=== PATIENT | female | born 1980 | race Caucasian/White ===

== ENCOUNTER 2018-04-09 13:53 | Emergency (ER) | payer BC ==
[~2018-04-09] VITALS: Ht 162.6 cm; Wt 62.6 kg
[2018-04-09 14:44] LABS: Source, Urine Clean Catch
[2018-04-09 14:48] LABS: Appearance, Urine Clear (Clear); Bilirubin, Urine Neg (Neg); Blood, Urine Neg (Neg); Color, Urine Yellow (P-Yellow); Glucose Qualitative, Urine Neg (Neg); Ketones, Urine Neg (Neg); Leukocyte Esterase, Urine Neg (Neg); Nitrite, Urine Neg (Neg); Protein, Urine Neg (Neg); Urobilinogen, Urine NORM (Normal)
[2018-04-09 15:15] LABS: Alanine Aminotransfer (ALT/SGP 28 U/L (12-78); Albumin, Blood 4.2 g/dL (3.4-5.0); Albumin/Globulin Ratio 1.2 (0.8-1.8); Alk Phos 62 U/L (50-136); Anion Gap 9 mmol/L (6-16); Aspartate Aminotrans (AST/SGOT 17 U/L (12-37); Bilirubin, Total 0.6 mg/dL (0.1-1.0); Blood Urea Nitrogen 15 mg/dL (8-24); Bun/Creatinine Ratio 20.5 (12.0-20.0); CO2, Blood 27 mmol/L (21-32); Chloride, Blood 105 mmol/L (98-108); Creatinine, Blood 0.73 mg/dL (0.40-1.00); Globulin, Blood 3.5 g/dL (2.2-4.0); Glomerular Filtration Rate >60 (60-); Glucose, Blood 86 mg/dL (70-99); Potassium, Blood 3.6 mmol/L (3.5-5.5); Sodium, Blood 141 mmol/L (136-145); Total Protein, Blood 7.7 g/dL (6.4-8.2)
== END 2018-04-09 15:30 | disposition left against medical advice (07) ==
LOC: ER 13:53
PROVIDERS: Emergency Medicine
DX: Z53.21 Procedure and treatment not carried out due to patient leaving prior to being seen by health care provider (principal)
CPT/HCPCS: 80053; 81003; 81025; 83690; 99283

== ENCOUNTER → 2020-08-31 | Outpatient (CLI) | payer BC | END | disposition home or self-care (01) | LOC: LAB SHORT 08-30 13:34 → PLD 13:45 | DX: N92.0 Excessive and frequent menstruation with regular cycle (principal) | CPT/HCPCS: 88305 ==

== ENCOUNTER 2021-08-15 07:58 | Day surgery (SDC) | payer BC ==
[~2021-08-15] VITALS: Ht 162.6 cm; Wt 67.5 kg
--- NOTE | 2021-08-15 13:52 | NUR ---
PATIENT ARRIVED TO THE FLOOR FROM PACU AT 1200 TODAY. CATHETHER WAS REMOVED AND TOLERATED WELL. PATIENT UP TO URINATE IMMEDIATELY. MISSED HAT AND STATES IT WAS VERY LITTLE URINE. AT 1330 PATIENT URINATED 200ML YELLOW URINE, BLADDER SCAN WITH 0ML NOTED IN BLADDER. TOLERATING PO FLUIDS AND CRACKERS, REFUSES MEAL. STATES DOES NOTE LIKE HOSPITAL FOOD. MEDICATED WITH OXY 5MG PO FOR PAIN. TOLERATING WELL. AMBULATING WELL. PATIENT WILL BE DISCHARGING TODAY
[2021-08-15] MEDS ORDERED: ACET500 PO (14:01)
[2021-08-15] MEDS ORDERED: DOCU100 PO (14:01)
[2021-08-15] MEDS ORDERED: IBUP400 PO (14:02)
[2021-08-15] MEDS ORDERED: ONDA4ODT MM (14:03)
[2021-08-15] MEDS ORDERED: OXYC5 PO (14:06)
--- NOTE | 2021-08-15 14:32 | NUR ---
DISCHARGE DISCHARGE INSTRUCTIONS GIVEN TO PATIENT AT THIS TIME. PATIENT AND VERBALIZED UNDERSTANDING OF INSTRUCTIONS. NO SIGNS OR SYMPTOMS ACUTE DISTRESS NOTED. PAIN TOLERABLE LEVEL. IV X 2 REMOVED WITH NO ISSUES TO NOTE. PATIENT LEFT VIA WHEEL CHAIR AND PICKED HER UP IN PRIVATE VEHICLE.
--- NOTE | 2021-08-18 14:09 | NUR ---
08/18/21 1409 Yanelis Grey VERIFICATIONS: EDIT CHART.
== END 2021-08-15 14:41 | disposition home or self-care (01) ==
LOC: ORSCMMR 07:58 → ORD 09:30 → ORSCMMR 09:30 → SURS 12:00 → ORSCMMR 14:41
PROVIDERS: Obstetrics & Gynecology
PROC: 0UT7FZZ Resection of Bilateral Fallopian Tubes, Via Natural or Artificial Opening With Percutaneous Endoscopic Assistance (ICD-10-PCS; principal; 2021-08-15 09:30)
PROC: 0UT9FZZ Resection of Uterus, Via Natural or Artificial Opening With Percutaneous Endoscopic Assistance (ICD-10-PCS; principal; 2021-08-15 09:30)
DX: N92.0 Excessive and frequent menstruation with regular cycle (principal); N80.0 Endometriosis of uterus; N94.6 Dysmenorrhea, unspecified
CPT/HCPCS: 88307; A9270; J0171; J0690; J1100; J1170; J1885; J2250; J2405; J2704; J3010; J7120

== ENCOUNTER → 2021-09-22 | Outpatient (CLI) | payer BC ==
[~2021-09-22] MED LIST: ACET500 PO; DOCU100 PO; IBUP400 PO; ONDA4ODT MM; OXYC5 PO
[2021-09-23 10:54] LABS: Candida species (DNA Probe) Negative (NEGATIVE); G. vaginalis (DNA Probe) Positive (NEGATIVE); T. vaginalis (DNA Probe) Negative (NEGATIVE)
== END | disposition home or self-care (01) ==
LOC: LAB SHORT 11:45 → LAB 11:45
PROVIDERS: Obstetrics & Gynecology
DX: N89.8 Other specified noninflammatory disorders of vagina (principal)
CPT/HCPCS: 87480; 87510; 87660